=== PATIENT | female | born 1945 | race Caucasian/White ===

== ENCOUNTER 2023-10-12 13:35 | Emergency (ER) | payer MEDICARE, OTHER ==
[~2023-10-12] VITALS: Ht 157.5 cm; Wt 61.2 kg
[2023-10-12] MEDS ORDERED: ALEN70TA3 PO (14:10)
[2023-10-12] MEDS ORDERED: LEMB5TAB PO (14:11)
[2023-10-12] MEDS ORDERED: DONE23TA3 PO (14:11)
[2023-10-12] MEDS ORDERED: GABA-532 PO (14:11)
[2023-10-12] MEDS ORDERED: DEXL60CA3 PO (14:11)
[2023-10-12] MEDS ORDERED: CLON0.5T4 PO (14:11)
[2023-10-12] MEDS ORDERED: DULO30CA2 PO (14:11)
[2023-10-12 14:41] LABS: BASOPHILS % (AUTO) 0.5 % (0.0-2.0); EOSINOPHILS # (AUTO) 0.1 K/uL (0.0-0.7); EOSINOPHILS % (AUTO) 1.7 % (0.0-7.0); HEMATOCRIT 37.2 % (31.2-41.9); HEMOGLOBIN 12.7 g/dL (10.9-14.3); LYMPHOCYTES # (AUTO) 1.3 K/uL (0.8-4.8); LYMPHOCYTES % (AUTO) 22.3 % (20.5-51.5); MEAN CORPUSCULAR HEMOGLOBIN 31.8 uug (24.7-32.8); MEAN CORPUSCULAR HGB CONC 34 g/dL (32.3-35.6); MEAN CORPUSCULAR VOLUME 93.6 fL (75.5-95.3); MONOCYTES # (AUTO) 0.7 K/uL (0.1-1.30); MONOCYTES % (AUTO) 11.8 % (0.0-11.0); NEUTROPHILS # (AUTO) 3.8 K/uL (1.8-8.9); NEUTROPHILS % (AUTO) 63.7 % (38.5-71.5); PLATELET COUNT (AUTO) 185 K/uL (179-408); RED BLOOD CELL COUNT(AUTO) 3.98 MIL/uL (3.63-4.92); RED CELL DISTRIBUTION WIDTH 13.6 % (12.3-17.7)
[2023-10-12 14:42] LABS: *BILIRUBIN,URIN NEGATIVE (NEGATIVE); *BLOOD, URINE 1+ (NEGATIVE); *CLARITY,URINE CLEAR (CLEAR); *COLOR,URINE YELLOW (YELLOW); *KETONES,URINE TRACE (NEGATIVE); *PROTEIN,URINE 1+ (NEGATIVE); *UROBILINOGEN,URINE 0.2 E.U./dl (NORMAL); LEUKOCYTE ESTERASE ,URINE NEGATIVE (NEGATIVE); NITRITE, URINE NEGATIVE (NEGATIVE); PH,URINE 5.5 (5.0-8.0); UGLUCOSE NEGATIVE (NEGATIVE)
[2023-10-12 14:56] LABS: DIFFERENTIAL COMMENT 1
[2023-10-12] MEDS ORDERED: KETOROLAC TROMETHAMINE 30 MG INJ ONE (14:56)
[2023-10-12] MEDS ORDERED: IV NORMAL SALINE 250 ML IV ONE (14:56)
[2023-10-12 14:57] LABS: BACTERIA,URINE FEW /HPF (NONE SEEN); SQUAMOUS EPITHELIAL CELL,UR NONE SEEN /HPF (NONE SEEN); WBC,URINE NONE SEEN /HPF (0-3)
[2023-10-12] MEDS ORDERED: IOHEXOL 300MG/ML 100 ML INFUS..BTL ONE (14:57)
[2023-10-12] MEDS ORDERED: SWABABLE VALVE TRANSFER SET EA MC ONE (14:57)
[2023-10-12 14:58] LABS: CALCIUM 10.2 mg/dL (8.5-10.1); CARBON DIOXIDE 26 mmol/L (21-32); CHLORIDE 103 mmol/L (98-107); CREATININE 0.7 mg/dL (0.6-1.3); GLUCOSE 99 mg/dL (74-106); POTASSIUM 3.6 mmol/L (3.5-5.1); SODIUM SERUM 138 mmol/L (136-145); UREA NITROGEN, BLOOD 16 mg/dL (7-18)
[2023-10-12] MEDS: KETOROLAC TROMETHAMINE 30 MG INJ IVP ONE (15:00)
[2023-10-12 15:03] LABS: ALANINE AMINOTRANSFERASE 39 U/L (14-59); ALBUMIN 3.8 g/dL (3.4-5.0); ALKALINE PHOSPHATASE 71 U/L (50-136); ASPARTATE AMINOTRANSFERASE 25 U/L (15-37); BILIRUBIN,DIRECT 0.1 mg/dL (0.0-0.2); BILIRUBIN,TOTAL 0.6 mg/dL (0.2-1.0); TOTAL PROTEIN, SERUM 8.1 g/dL (6.4-8.2)
[2023-10-12] MEDS ORDERED: NAPR-1196 PO (16:38)
[2023-10-12 17:40] VITALS: BP 138/69; TEMP 98.2; O2SAT 97
== END 2023-10-12 17:41 | disposition home or self-care (01) ==
LOC: ER 13:39
DX: M54.2 Cervicalgia (principal); K21.9 Gastro-esophageal reflux disease without esophagitis; Z20.822 Contact with and (suspected) exposure to COVID-19; Z79.899 Other long term (current) drug therapy
CPT/HCPCS: 36415; 70491; 71045; 80048; 80076; 81001; 83605; 84145; 85025; 87040; 87426; 87804; 93005; 96374; 99285; J1885; J7040; Q9967; A4606; A4663